=== PATIENT | female | born 1960 | race African-American/Black ===

== ENCOUNTER 2024-04-28 11:37 | Inpatient (IN) | payer OTHER ==
[2024-04-28 12:13] VITALS: BMI 28.4
[2024-04-28] MEDS ORDERED: diazePAM 5 MG TABLET PO PRN (12:55)
[2024-04-28] MEDS ORDERED: POLYETHYLENE GLYCOL (HEALTHYLAX) 3350 17 GM PACKET PO PRN (12:56)
[2024-04-28] MEDS ORDERED: METHOCARBAMOL 500 MG TABLET PO PRN (12:56)
[2024-04-28] MEDS ORDERED: hydrOXYzine PAMOATE 25 MG CAPSULE (FP) PO PRN (12:56)
[2024-04-28] MEDS ORDERED: guaiFENesin 600 MG TABLET.ER (FP) PO PRN (12:56)
[2024-04-28] MEDS ORDERED: IBUPROFEN 600 MG TABLET (FP) PO PRN (12:56)
[2024-04-28] MEDS ORDERED: ACETAMINOPHEN 325 MG TABLET (FP) PO PRN (12:56)
[2024-04-28] MEDS ORDERED: MAGNESIUM HYDROX 2400MG/30ML ORAL SUSPENSION 30 ML CUP PO PRN (12:56)
[2024-04-28] MEDS ORDERED: BENZOCAINE/MENTHOL (CHLORASEPTIC ) LOZENGE MM PRN (12:56)
[2024-04-28] MEDS ORDERED: LOPERAMIDE HCL 2 MG CAPSULE PO PRN (12:56)
[2024-04-28] MEDS ORDERED: IBUPROFEN 400 MG TABLET (FP) PO PRN (12:56)
[2024-04-28] MEDS ORDERED: ONDANSETRON *ODT* 4 MG TABLET SL PRN (12:56)
[2024-04-28] MEDS ORDERED: MAG HYDROX/AL HYDROX/SIMETH 30 ML UNIT-DOSE CUP PO PRN (12:56)
[2024-04-28] MEDS ORDERED: DICYCLOMINE HCL 10 MG CAPSULE PO PRN (12:56)
[2024-04-28] MEDS ORDERED: NALOXONE (NARCAN) HCL 4 MG/0.1 ML SPRAY NS PRN (12:56)
[2024-04-28] MEDS ORDERED: BISMUTH SUBSALICYLATE 524 MG/30 ML PO PRN (12:56)
[2024-04-28] MEDS ORDERED: BENZONATATE 200 MG CAPSULE PO PRN (12:56)
[2024-04-28] MEDS ORDERED: PRENATAL VITAMINS W/ FOLIC ACID TABLET (FP) PO ONE (13:19)
[2024-04-28] MEDS ORDERED: NICOTINE 7 MG/24 HOURS TOPICAL PATCH TD ONE (13:19)
[2024-04-28] MEDS: NICOTINE 7 MG/24 HOURS TOPICAL PATCH TD SCH (13:22)
[2024-04-28] MEDS: PRENATAL VITAMINS W/ FOLIC ACID TABLET (FP) PO SCH (13:22)
[2024-04-28] MEDS: diazePAM 5 MG TABLET PO SCH (17:09)
[2024-04-28] MEDS: THIAMINE 100 MG TABLET PO SCH (23:05)
[2024-04-28] MEDS: MELATONIN 5 MG TABLETS PO SCH (23:05)
[2024-04-29] MEDS ORDERED: PATIENT'S OWN MEDICATION (NON-FORMULARY) (Hydrochlorothiazide [Hydrochlorothiazide] 12.5 M PO SCH (11:45)
[2024-04-29 12:55] LABS: POTASSIUM 3.6 mmol/L (3.5-5.1)
[2024-04-29 12:57] LABS: HEMATOCRIT 36.9 % (32.4-45.2); HEMOGLOBIN 12.6 GM/dL (10.7-15.3); MCH 31.4 pg (25.7-33.7); MCHC 34.1 g/dl (32.0-36.0); MEAN CELL VOLUME 92.1 fl (80-96); MEAN PLT VOLUME 8.2 fl (7.5-11.1); PLATELET COUNT 237 10^3/uL (134-434); RDW 13.6 % (11.6-15.6); WHITE BLOOD COUNT 8.7 K/mm3 (4.0-10.0)
[2024-04-29 12:59] LABS: BLOOD UREA NITROGEN 26.2 mg/dL (7-18)
[2024-04-29 13:02] LABS: CALCIUM 9.1 mg/dL (8.5-10.1)
[2024-04-29 13:03] LABS: CREATININE 1.1 mg/dL (0.55-1.3)
[2024-04-29 13:04] LABS: TOT PROT 6.1 g/dl (6.4-8.2)
[2024-04-29 13:05] LABS: BILIRUBIN,TOTAL 0.3 mg/dL (0.2-1)
[2024-04-29] MEDS: HYDROCHLOROTHIAZIDE 12.5 MG CAPSULE (FP) PO SCH (13:38)
[2024-04-30] MEDS: diazePAM 5 MG TABLET PO SCH (06:38)
[2024-04-30] MEDS: ASPIRIN 81 MG CHEWABLE TABLETS PO SCH (10:23)
[2024-04-30] MEDS: LISINOPRIL 10 MG TABLET PO SCH (10:24)
[2024-04-30] MEDS: LISINOPRIL 10 MG TABLET PO ONE (10:41)
[2024-04-30] MEDS: ASPIRIN 81 MG CHEWABLE TABLETS PO ONE (10:41)
[2024-05-01] MEDS: diazePAM 5 MG TABLET PO SCH (05:41)
[2024-05-01] MEDS: NALOXONE (NYS OPIOID OVERDOSE PROGRAM) 4 MG/0.1 ML SPRAY NS SCH (15:55)
[2024-05-02] MEDS: NICOTINE POLACRILEX 2 MG GUM BUC PRN (00:02)
[2024-05-02] MEDS: diazePAM 5 MG TABLET PO ONE (05:43)
[2024-05-02 22:14] VITALS: BP 128/88; PULSE 80; RESP 16; TEMP 97.7
== END 2024-05-03 10:20 | disposition home or self-care (01) | DRG 774 ==
LOC: YASAS 11:37 → Y6N 13:45
PROVIDERS: ADMIT Allergy & Immunology; ATTEND Surgery
PROC: HZ2ZZZZ Detoxification Services for Substance Abuse Treatment (ICD-10-PCS; principal; 2024-04-28)
DX: F10.230 Alcohol dependence with withdrawal, uncomplicated (principal); F14.20 Cocaine dependence, uncomplicated; F16.20 Hallucinogen dependence, uncomplicated; F12.20 Cannabis dependence, uncomplicated; F17.210 Nicotine dependence, cigarettes, uncomplicated; F19.94 Other psychoactive substance use, unspecified with psychoactive substance-induced mood disorder; F43.10 Post-traumatic stress disorder, unspecified; I10 Essential (primary) hypertension; Z62.810 Personal history of physical and sexual abuse in childhood; Z59.00 Homelessness unspecified
CPT/HCPCS: 36415; 80053; 80305; 80307; 83036; 85027; 86780; 93005; 93010